=== PATIENT | female | born 1975 | race Caucasian/White ===

== ENCOUNTER → 2016-09-04 | Outpatient (CLI) | payer BC ==
[~2016-09-04] MED LIST: ACHD5005 PO; ACYC2CRE TP; ALPR.5T PO; AMIT10TA6 PO; AMOX-355 PO; AMOX-358 PO; ARIP10TA2 PO; AZTH250C PO; BUDE6HFA IH; BUPR150T6 PO; CPR500T PO; CYCL10TA9 PO; DCS100C; DULO60CA6 PO; ESTR1TAB24 PO; FLC150T PO; FLUO20CA25 PO; FLUR30CA13 PO; FRSM40T PO; HYDR-2890 PO; HYDR-3454 PO; HYDR-3816 PO; HYDR-757 PO; KETO10TA PO; LACT1CAP62 PO; LVB125NB3; MELA5CAP PO; METO-270 PO; METR500T PO; MILN50TA PO; MUPI1OIN5 NS; NAPR-243 PO; NEBI5TAB8 PO; PHEN-483 PO; PHEN15CA67 PO; POTA10CA43 PO; PRD5T PO; SULF1TAB35 PO; TEMA30CA6 PO; TOPI50TA37 PO; TPR25T PO; TRAM50TA2 PO; TRM50T PO; VALA100033 PO; ZLP10T PO
--- OUTSIDE RECORDS SUMMARY | 2016-09-04 15:53 | XMS REPORT | Continuity of Care Document ---
Author Author [facility] Organization [facility] Address Unknown Phone Unavailable Care Team Providers Care Heating Mechanic Name Role Phone RAMAN CASTELLANOS MD PCP Insurance Providers Payer Name Policy Number Subscriber Name Relationship [facility] [id number] Norris Daniels Ii 01 Advance Directives Directive Response Recorded Date/Time Advance Directives No 12/27/15 8:24pm Health Care Power of Airline Captain No 12/27/15 8:24pm Organ Donor Yes 12/27/15 8:24pm Resuscitation Status Full Code 12/27/15 8:24pm Chief Complaint and Reason for Visit Chief Complaint Laceration Reason for Visit Laceration of foot Problems Active Problems Medical Problem Onset Date Status Laceration of foot Unknown Acute Medications Current Home Medications Medication Dose Units Route Directions Days/Qty Instructions Start Date Estradiol 1 Mg 1 Mg Oral Daily 05/25/11 Alprazolam 0.5 Mg 1 Tab Oral Daily as needed 07/31/11 Metoprolol Succinate 25 Mg 25 Mg Oral Twice A Day 04/03/15 Duloxetine Hcl 60 Mg 60 Mg Oral Daily 04/03/15 Topiramate 50 Mg 50 Mg Oral Daily 04/03/15 Tramadol Hcl 50 Mg 50 Mg Oral As Needed 04/03/15 Phentermine Hcl 37.5 Mg 37.5 Mg Oral Daily 04/03/15 Hydrocodone/Acetaminophen 1 Each 1 Each Oral As Needed 04/03/15 Hydrocodone/Acetaminophen 1 Each 1 Each Oral Every 4HRS as needed for Pain 40 04/05/15 Amoxicillin/Potassium Clav 1 Each 1 Tab Oral Twice A Day 7 Days Hydrocodone/Acetaminophen 1 Each 1 Each Oral Every 4HRS as needed for Pain 14 12/27/15 Sulfamethoxazole/Trimethoprim 1 Each 1 Each Oral Twice A Day 14 Metronidazole 500 Mg 500 Mg Oral Three Times A Day 21 12/27/15 Lactobacillus Acidophilus 1 Each 1 Each Oral Twice A Day 12/27/15 Past Home Medications Medication Directions Ordered Status Alprazolam 0.5 Mg Tablet, 1 Tab Oral Every 6 Hours as needed 04/15/10 Discontinued Hydrocodone Bit/Acetaminophen 1 Each Tablet, 1 Each Oral Every 6 Hours as needed 10/08/10 Discontinued Flurazepam Hcl 30 Mg Capsule, 30 Mg Oral Bedtime as needed 10/08/10 Discontinued Nebivolol Hcl 5 Mg Tablet, 1 Each Oral Daily 10/08/10 Discontinued Fluoxetine Hcl (Prozac) 20 Mg Capsule, 1 Each Oral Daily 10/08/10 Discontinued Aripiprazole 10 Mg Tablet, 10 Mg Oral Daily 10/08/10 Discontinued Melatonin 5 Mg Capsule, 5 Mg Oral Daily 10/08/10 Discontinued Ciprofloxacin 500 Mg Tablet, 1 Tab Oral Twice A Day 10/31/10 Discontinued Zolpidem Tartrate 10 Mg Tab, 10 Mg Oral Bedtime 05/25/11 Discontinued Bupropion Hcl 150 Mg Tab.sr.24h, 1 Tab Oral Daily 05/25/11 Discontinued Zolpidem Tartrate 10 Mg Tab, 10 Mg Oral Bedtime 07/31/11 Discontinued Acetaminophen/Hydrocodone Bitart 1 Each Tablet, 1 Each Oral Every 6 Hours as needed 07/31/11 Discontinued Tramadol Hcl 50 Mg Tablet, 50 Mg Oral Every 6 Hours as needed 07/31/11 Discontinued Valacyclovir Hcl 1,000 Mg Tablet, 1000 Mg Oral Three Times A Day as needed Discontinued Acyclovir 2 Gm Cream.gm., 0 Topical Four Times Daily as needed 07/31/11 Discontinued Phentermine Hcl 15 Mg Capsule, 15 Mg Oral Daily 07/31/11 Discontinued Budesonide/Formoterol Fumarate 10.2 Gm Hfa.aer.ad, 2 Puff Inhalation Twice A Day 07/31/11 Discontinued Prednisone 5 Mg Tab, 5 Mg Oral Daily 08/04/11 Discontinued Hydrocodone Bit/Acetaminophen 1 Each Tablet, 1 Each Oral Every 4HRS as needed 08/04/11 Discontinued Fluconazole 150 Mg Tablet, 1 Each Oral Daily 08/04/11 Discontinued Furosemide 40 Mg Tab, 40 Mg Oral Daily 08/04/11 Discontinued Potassium Chloride 10 Meq Capsule.sa, 10 Meq Oral Daily 08/04/11 Discontinued Naproxen 500 Mg Tablet, 1 Each Oral Twice A Day as needed 08/06/11 Discontinued Levalbuterol Hcl 1.25 Mg/3 Ml Nebu, Four Times Daily 08/13/11 Discontinued Docusate Sodium 100 Mg Capsule, Daily 08/13/11 Discontinued Azithromycin 250 Mg Tablet, 1 Tab Oral Daily 08/13/11 Discontinued Topiramate 25 Mg Tab, 25 Mg Oral Twice A Day 06/07/12 Discontinued Amitriptyline Hcl (Elavil) 10 Mg Tablet, 4 Each Oral Bedtime 06/07/12 Discontinued Acetaminophen/Hydrocodone Bitart 1 Each Tablet, 1 - 2 Each Oral Every 6 Hours as needed 06/07/12 Discontinued Amoxicillin/Potassium Clav 1 Each Tablet, 1 Each Oral Twice A Day 12/27/15 Discontinued Social History Social History Problem Response Recorded Date/Time Alcohol Use Occasionally Uses 12/27/2015 8:24pm Recreational Drug Use No 12/27/2015 8:24pm Recent Foreign Travel No 12/27/2015 8:24pm Recent Infectious Disease Exposure No 12/27/2015 8:24pm Hospitalization with Isolation Denies 12/27/2015 8:24pm Sexually Transmitted Disease No 12/27/2015 8:24pm HIV/AIDS No 12/27/2015 8:24pm Smoking Status Never a Smoker 12/27/2015 8:24pm Do you dip or chew tobacco? No 12/27/2015 8:24pm Query Response Start Date Stop Date Smoking Status Never a Smoker Hospital Discharge Instructions No hospital discharge instructions. Plan of Care Discharge Date 12/27/15 9:30pm Disposition 01 HOME, SELF-CARE Condition at Discharge Improved Instructions/Education Provided Suture Care (ED) Laceration (ED) Prescriptions See Medication Section Referrals RAMAN CASTELLANOS MD - Primary Care Physician Additional Instructions/Education 1. Follow up with Dr. Castellanos for recheck of the wound on Thursday or Thursday. If you are unable to be seen by him on either of those days you may return to the emergency room for wound recheck on either of those days. He should return promptly to the emergency room for any sign of infection such as redness, fevers, increased swelling or pain. Keep this clean and covered and dry for 2 days. After that you may wash it gently with soap and water allowing water to run over it. However, do not soak it in water such as a [place], [place], swimming pool, hot tub, bath tub. Change the dressing daily. Oral antibiotics as directed. All discharge instructions reviewed with patient and/or family. Voiced understanding. Functional Status No functional status results. Allergies, Adverse Reactions, Alerts No known allergies. Immunizations Name Given Type Tdap 12/27/15 Administered Vital Signs Acute Vital Signs Vital Response Date/Time Temperature (Fahrenheit) 98.2 degrees F (97.6 - 99.5) 12/27/2015 8:24pm Temperature (Calculated Celsius) 36.24692 degrees C (36.4 - 37.5) 12/27/2015 8:24pm Pulse Rate (adult) 94 bpm (60 - 90) 12/27/2015 8:24pm Respiratory Rate 16 bpm (12 - 24) 12/27/2015 8:24pm O2 Sat by Pulse Oximetry 96 % (88 - 100) 12/27/2015 8:24pm Blood Pressure 150/100 mm Hg 12/27/2015 8:24pm Blood Pressure Mean 117 mm Hg 12/27/2015 8:24pm Pain Numeric Pain Scale 10-Worst Possible Pain 12/27/2015 8:29pm Height (Feet) 5 feet 12/27/2015 8:24pm Height (Inches) 8 inches 12/27/2015 8:24pm Height (Calculated Centimeters) 172.054794 cm 12/27/2015 8:24pm Weight (Pounds) 156 pounds 12/27/2015 8:24pm Weight (Calculated Kilograms) 70.720347 kilograms 12/27/2015 8:24pm Height 5 ft 8 in Weight 156 lb Body Mass Index 23.7 kg/m^2 Results No known relevant diagnostic tests, laboratory data and/or discharge summary. Procedures No known history of procedures. Encounters Encounter Location Arrival/Admit Date Discharge/Depart Date Attending Provider Departed Emergency Room [facility] 12/27/15 8:16pm 12/26 9:30pm JOSE KEATING APRN Recent Diagnosis
--- NOTE | 2016-09-08 17:27 | Diagnostic Imaging Report ---
Bilateral screening mammogram The current study was also evaluated with a Computer Aided Detection (CAD) system. INDICATION: Screening. No current complaints stated on the questionnaire. COMPARISON: 09/30/2013. FINDINGS: The breasts are composed of scattered fibroglandular densities. There are no masses, architectural distortion, or suspicious cluster of calcifications. Occasional punctate calcifications are seen. Allowing for technique and positional differences, no suspicious change is seen. IMPRESSION: No significant change. ACR BI-RADS Category 2: Benign findings. Result letter will be mailed to the patient. Note: At least 10% of breast cancer is not imaged by mammography. Dictated by: Dictated on workstation # [id number]
== END ==
LOC: RAD 15:49
PROVIDERS: ATTEND Nurse Practitioner Family
DX: Z12.31 Encounter for screening mammogram for malignant neoplasm of breast (principal)
CPT/HCPCS: 77067

== ENCOUNTER → 2018-03-25 | Outpatient (CLI) | payer BC ==
[~2018-03-25] MED LIST changes: +HYDR-34 PO; -HYDR-3816 PO; +HYDR-4226 PO; -HYDR-757 PO; -METO-270 PO; +METO-387 PO
--- NOTE | 2018-03-26 20:04 | Diagnostic Imaging Report ---
The current study was also evaluated with a Computer Aided Detection (CAD) system. 3-D tomosynthesis was also performed and reviewed. Digital mammogram bilateral screening This study was compared to the prior exam of 09/04/2016. At this time, there are no current complaints. The current study was also evaluated with a Computer Aided Detection (CAD) system. FINDINGS: There are scattered fibroglandular densities in both breasts which could obscure a lesion. Overall, there does not appear to have been any significant change when compared to the prior exam. No primary or secondary sign of malignancy is noted. IMPRESSION: There is no radiographic evidence for malignancy. ACR BI-RADS Category 1: Negative. Result letter will be mailed to the patient. Note: At least 10% of breast cancer is not imaged by mammography. Dictated by: Dictated on workstation # [id number]
== END ==
LOC: RAD 15:10
DX: Z12.31 Encounter for screening mammogram for malignant neoplasm of breast (principal)
CPT/HCPCS: 77067

== ENCOUNTER 2019-02-10 16:29 | Outpatient (RCR) | payer BC ==
[~2019-02-10 16:29] MED LIST changes: -HYDR-3454 PO; +HYDR-3455 PO
== END 2019-03-02 08:50 | disposition home or self-care (01) ==
PROVIDERS: ATTEND Nurse Practitioner Family
DX: M54.5 Low back pain (principal)

== ENCOUNTER → 2019-04-19 | Outpatient (CLI) | payer BC ==
--- NOTE | 2019-04-19 13:46 | Diagnostic Imaging Report ---
PROCEDURE: MRI lumbar spine. TECHNIQUE: Multiplanar/multisequence MRI of the lumbar spine was performed without contrast. INDICATION: Low back pain. COMPARISON: Correlation is made with the prior MRI of the lumbar spine performed on 02/11/2016. FINDINGS: The curvature and alignment of the lumbar spine remain within normal limits. The vertebral body heights and marrow signal intensity are unremarkable. No geographic marrow lesion or acute compression fracture is seen. There continues to be some mild loss of height and signal intensity to the L2-3 disc, compatible with mild degenerative disc disease. The remaining discs show fairly normal height and signal intensity. The conus is unremarkable at the L1 level. T12-L1: No central canal or neuroforaminal stenosis is identified. L1-L2: No central canal or neuroforaminal stenosis is identified. L2-L3: Broad-based disc bulging in the midline is noted, slightly more prominent than on the prior exam, which shows some slight indentation of the ventral thecal sac. Even so, no significant central canal narrowing is seen. The neuroforamina are widely patent. L3-L4: The central canal and neuroforamina are widely patent. L4-L5: There are some ligamentous changes and facet arthropathy but the central canal and neuroforamina are widely patent. L5-S1: The central canal and neuroforamina are widely patent. The paraspinous tissues are unremarkable. IMPRESSION: The L2-L3 wide based midline disc bulge is slightly more prominent when compared with the prior MRI from January 2016. Even so, no significant central canal or neuroforaminal narrowing is seen. All other levels are stable. No acute compression fracture is identified. Dictated by: Dictated on workstation # [id number]
== END ==
LOC: RAD 12:27
PROVIDERS: ATTEND Nurse Practitioner Family
DX: M51.26 Other intervertebral disc displacement, lumbar region (principal)
CPT/HCPCS: 72148

== ENCOUNTER 2019-09-14 16:28 | Emergency (ER) | payer BC ==
[~2019-09-14] VITALS: Ht 172.8 cm; Wt 74.0 kg
[~2019-09-14 16:28] MED LIST changes: -METO-387 PO; +MTP25TSR PO
[2019-09-14] MEDS ORDERED: HYDROcodone/APAP 10 MG/325 MG (LORTAB) TAB PO STA (17:10)
--- NOTE | 2019-09-14 17:12 | ED Upper Extremity ---
General Chief Complaint: Upper Extremity Stated Complaint: FALL - R HAND INJ Nursing Triage Note: Pt amb to triage with c/o Rt hand injury. Pt reports @ 1600 on this day, while walking down a set of stairs, her leg "gave out" resulting in falling down last two stairs. Pt denies hitting head, LOC, or further injury. 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 Pt reports hx rheumatoid arthritis. A&OX4. Nursing Sepsis Screen: No Definite Risk Source: patient Exam Limitations: no limitations History of Present Illness Date Seen by Provider: Sep 14, 2019 Time Seen by Provider: 17:05 Initial Comments Here with report of right hand pain and injury. She has rheumatoid arthritis and her hip gave out when she went down the stairs. She tried a touch herself with her hand and jammed her right fifth finger stating that it bent backwards. She states the other fingers but forward in the flexed position. She has deformity in the third, fourth and fifth MCP and significant swelling to the right fifth finger from the MCP to the tip. Abrasion over the third MCP. Tetanus is up-to-date. Denies hitting her head. Denies other significant injury. Planes of mild pain to the anterior right knee but is able to walk on it and is not concerned about that at this point. She does have hydrocodone 10/325 at home that she takes as needed for her rheumatoid arthritis. She has only had a Tylenol 500 today for this at 4 PM. Patient is right-hand dominant Onset: just prior to arrival (1-2 hours ago) Severity: moderate Pain/Injury Location: right hand Method of Injury: fell Modifying Factors: Improves With Immobilization; Worse With Movement; Improves With Rest Allergies and Home Medications Allergies Coded Allergies: No Known Drug Allergies (Unverified , 04/15/10) Home Medications Alprazolam 0.5 Mg Tablet, 1 TAB PO DAILY PRN, (Reported) Amoxicillin/Potassium Clav 1 Each Tablet, 1 TAB PO BID Prescribed by: CAMILO PIZARRO on 04/05/15 1026 Cyclobenzaprine HCl 10 Mg Tablet, 10 MG PO Q8H Prescribed by: QUAN FAUST on 03/17/16 1410 Duloxetine HCl 60 Mg Capsule.dr, 60 MG PO DAILY, (Reported) Estradiol 1 Mg Tablet, 1 MG PO DAILY, (Reported) Hydrocodone Bit/Acetaminophen 1 Each Tablet, 1 EACH PO PRN, (Reported) Hydrocodone/Acetaminophen 1 Each Tablet, 1 EACH PO Q4H PRN for PAIN Prescribed by: CAMILO PIZARRO on 04/05/15 1026 Hydrocodone/Acetaminophen 1 Each Tablet, 1 EACH PO Q4H PRN for PAIN Prescribed by: JOSE KEATING on 12/27/152054 Ketorolac Tromethamine 10 Mg Tablet, 10 MG PO Q6H Prescribed by: QUAN FAUST on 03/17/16 1410 Lactobacillus Acidophilus 1 Each Capsule, 1 EACH PO BID Prescribed by: JOSE KEATING on 12/27/152100 Metoprolol Succinate 25 Mg Tab.er.24h, 25 MG PO BID, (Reported) Metronidazole 500 Mg Tablet, 500 MG PO TID Prescribed by: JOSE KEATING on 12/27/152100 Phentermine HCl 37.5 Mg Capsule, 37.5 MG PO DAILY, (Reported) Sulfamethoxazole/Trimethoprim 1 Each Tablet, 1 EACH PO BID Prescribed by: JOSE KEATING on 12/27/152100 Topiramate 50 Mg Tablet, 50 MG PO DAILY, (Reported) Tramadol HCl 50 Mg Tablet, 50 MG PO PRN, (Reported) Patient Home Medication List Home Medication List Reviewed: Yes Review of Systems Constitutional: see HPI; No chills, No fever Respiratory: no symptoms reported Cardiovascular: no symptoms reported Musculoskeletal: joint pain, joint swelling; No muscle weakness Skin: change in color, lesions Psychiatric/Neurological: Denies Numbness, Denies Tingling Past Eiqweic-Nkvdse-Biznim Hx Past Med/Social Hx: Reviewed Nursing Past Med/Soc Hx Patient Social History Alcohol Use: Denies Use Recreational Drug Use: No Smoking Status: Never a Smoker 2nd Hand Smoke Exposure: No Recent Foreign Travel: No Contact w/Someone Who Travel: No Recent Infectious Disease Expo: No Recent Hopitalizations: No Immunizations Up To Date Tetanus Booster (TDap): Less than 5yrs Past Medical History Surgeries: Yes (RIGHT KNEE SCOPE; HYST/BSO) Appendectomy, Section, Hysterectomy, Oophorectomy, Orthopedic, Tonsillectomy Respiratory: No Cardiac: Yes Hypertension Neurological: Yes Headaches /Migraines Reproductive Disorders: No Female Reproductive Disorders: Denies 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 Sexually Transmitted Disease: No HIV/AIDS: No Gastrointestinal: Yes Polyps Musculoskeletal: Yes (CHRONIC NECK AND BACK PAIN; SCIATICA; "BULGING DISCS" PER PT) Chronic Back Pain Endocrine: No Loss of Vision: Denies Hearing Impairment: Denies Cancer: No Psychosocial: Yes Anxiety Integumentary: No Blood Disorders: No Adverse Reaction/Blood Tranf: No Family Medical History Reviewed Nursing Family Hx Physical Exam Vital Signs Vital Signs - First Documented 09/14/19 16:45 Pulse 74 Resp 18 B/P (MAP) 119/79 (92) Pulse Ox 97 O2 Delivery Room Air Capillary Refill : Less Than 3 Seconds Height, Weight, BMI Height: 5'8" Weight: 157lbs. 0oz. 71.980084dd; 24.00 BMI Method:Stated General Appearance: WD/WN, no apparent distress Cardiovascular: regular rate, rhythm, no murmur Respiratory: lungs clear, normal breath sounds Hand: Right, deformity, ecchymosis, limited ROM, soft tissue tenderness, stiffness, swelling (right hand with swelling noted especially of the fifth digit. Deformity, swelling and pain at the MCP of the third, fourth and fifth with some swelling and ecchymosis noted to the distal hand and fifth finger.) Neurologic/Psychiatric: alert, oriented x 3; No sensory deficit Skin: normal color, warm/dry, other (small abrasion to the right third MCP dorsum) Procedures/Interventions Suture Size: 5-0 Progress/Results/Core Measures Results/Orders My Orders Orders - EFREN CRUZ MD Hydrocodone/Apap 10/325 Tablet (Lortab 1 (09/14/19 17:10) Hand, Right, 3 Views (09/14/19 17:10) Vital Signs/I&O 09/14/19 16:45 Pulse 74 Resp 18 B/P (MAP) 119/79 (92) Pulse Ox 97 O2 Delivery Room Air Blood Pressure Mean: 92 Progress Progress Note : Progress Note Seen and evaluated. Hydrocodone 10/325 one tab by mouth given. X-ray right hand and ice pack ordered. Monitor patient. Left fifth proximal phalanx fracture noted that does appear to be closed interarticular area. Ulnar gutter splint placed by me. Good distal circulation and sensation noted afterwards. Patient has history with Dr. Lucas so we'll call him in the morning. Discharged home with return precautions. Patient and family verbalize understanding instructions and agreement with plan. Diagnostic Imaging Diagonstic Imaging: Xray Plain Films/CT/US/NM/MRI: other Comments Right proximal fifth phalanx fracture at the MCP. Departure Impression Primary Impression: Finger fracture, right Qualified Codes: S62.646A - Nondisplaced fracture of proximal phalanx of right little finger, initial encounter for closed fracture Disposition: HOME, SELF-CARE Condition: Stable Departure-Patient Inst. Decision time for Depature: 17:55 Referrals: RAMAN CASTELLANOS MD (PCP/Family) Primary Care Physician ISABELA OLMSTEAD MD, MICHAEL P MD Patient Instructions: Finger Fracture Add. Discharge Instructions: All discharge instructions reviewed with patient and/or family. Voiced understanding. Keep splint clean and dry. Continue your home pain medications as previously prescribed. Call Dr. Lucas's office in the morning for appointment. If you're unable to get in with him then you may use the other orthopedist as listed above. Return for worse pain, swelling, numbness or other concerns as needed. Keep hand elevated as much as possible to reduce swelling. Use ice packs over area concern 20 minutes per hour over the next 2 days to reduce swelling as well. EFREN CRUZ MD Sep 14, 2019 17:12
[2019-09-14 18:00] VITALS: BP 119/79
--- NOTE | 2019-09-14 18:08 | Diagnostic Imaging Report ---
EXAMINATION: Right hand radiographs, 3 views. COMPARISON: None. HISTORY: 43-year-old female, right hand injury. FINDINGS: There is a comminuted mildly displaced intra-articular fracture involving the fifth proximal phalanx with intra-articular fracture extension at the level of the fifth metacarpal phalangeal joint. There is no gross offset of the articulating surface. There is no identified radiopaque foreign body. IMPRESSION: Comminuted mildly displaced intra-articular fracture of the fifth proximal phalanx without identified offset of the articulating surface. Dictated by: Dictated on workstation # [id number]
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
== END 2019-09-14 18:00 | disposition home or self-care (01) ==
LOC: EDUNIT# 16:28 → ER 16:30
DX: S62.646A Nondisplaced fracture of proximal phalanx of right little finger, initial encounter for closed fracture (principal); I10 Essential (primary) hypertension; F41.9 Anxiety disorder, unspecified; Z79.52 Long term (current) use of systemic steroids; W10.9XXA Fall (on) (from) unspecified stairs and steps, initial encounter
CPT/HCPCS: 29125; 73130

== ENCOUNTER → 2020-03-26 | Outpatient (CLI) | payer OTHER, BC ==
--- NOTE | 2020-03-26 18:28 | Diagnostic Imaging Report ---
Exam: CT right fifth finger without contrast. Date: March 26, 2020. Indication: 44-year-old female, evaluate right fifth finger following surgery. Comparison: Right hand radiographs September 14, 2019. Technique: Axial CT images of the right fifth finger were obtained without contrast. Coronal and sagittal reformats were obtained and provided. All CT scans use one or more of the following dose optimizing techniques: automated exposure control, MA and/or KvP adjustment based on a patient size and exam type, or iterative reconstruction. Findings: There is a fixation screw at the level of the proximal aspect of the fifth proximal phalanx. There is interval bony callus bridging at the site of prior fifth proximal phalangeal fracture. There is a persistent visible fracture line at the most ulnar aspect of the fracture on coronal image 16 and adjacent sequential images. This includes fracture extension to the articulating surface. The fracture is otherwise completely bridged with a mild residual deformity. There is no gross offset of the articulating surface of the base of the fifth proximal phalanx. There is no cortical or aggressive bone destruction. There is no concerning periosteal reaction. Impression: 1. Near complete bony bridging of the prior intra-articular fracture of the fifth proximal phalanx with residual fracture line at the most ulnar aspect of the prior fracture including intraarticular fracture extension. There is no gross offset of the articulating surface. The fracture is otherwise completely bridged with mild residual deformity. Dictated by: Dictated on workstation # [id number]
== END ==
LOC: RAD 15:45
PROVIDERS: ATTEND Orthopaedic Surgery Hand Surgery
DX: S62.616D Displaced fracture of proximal phalanx of right little finger, subsequent encounter for fracture with routine healing (principal); Z98.890 Other specified postprocedural states
CPT/HCPCS: 73200

== ENCOUNTER 2020-05-08 01:42 | Emergency (ER) | payer BC, OTHER ==
[~2020-05-08] VITALS: Ht 172.7 cm; Wt 73.0 kg
[2020-05-08] MEDS ORDERED: TETANUS,DIPTH,PERTUSS P/F (BOOSTRIX) 0.5 ML VIAL IM ONE (02:15)
--- NOTE | 2020-05-08 02:19 | ED Fall/Injury ---
General Chief Complaint: Trauma-Non Activation Stated Complaint: FALL,LEFT HAND & NOSE PAIN Nursing Triage Note: Pt states she was sleep-walking and fell forward, c/o pain in left wrist and on bridge of nose (lac present) Source: patient Exam Limitations: no limitations (KELLY TRAORE STUDENT) History of Present Illness Date Seen by Provider: May 08, 2020 Time Seen by Provider: 01:48 Initial Comments Ms. Daniels is a 44 y/o F who presents to ED via driving her with chief complaint of fall. She said she was sleep walking and woke up as she was falling forward. She reports hitting her face and left hand on her fall. She said the fall was loud enough to wake her up. She reports taking 10 of ambien for the last couple years and took this last night before going to bed. She said it happened approximately at 1am. She rates the pain as 4/10 right now. She wonders if her nose is broken. She describes her hand pain as worse in the 4th and 5th digits. She reports that she had surgery 3 weeks ago on her right 5th digit due to a fall back in August of this year at work. She denies any neck pain, COOLEY, head pain, blurry vision, confusion, memory loss, syncope, nausea, vomiting, abdominal pain, chest pain or difficulty breathing. Location Injury Occurred: home (KELLY TRAORE STUDENT) Allergies and Home Medications Allergies Coded Allergies: No Known Drug Allergies (Unverified , 04/15/10) Home Medications Alprazolam 0.5 Mg Tablet, 1 TAB PO DAILY PRN, (Reported) Amoxicillin/Potassium Clav 1 Each Tablet, 1 TAB PO BID Prescribed by: CAMILO PIZARRO on 04/05/15 1026 Cyclobenzaprine HCl 10 Mg Tablet, 10 MG PO Q8H Prescribed by: QUAN FAUST on 03/17/16 1410 Duloxetine HCl 60 Mg Capsule.dr, 60 MG PO DAILY, (Reported) Estradiol 1 Mg Tablet, 1 MG PO DAILY, (Reported) Hydrocodone Bit/Acetaminophen 1 Each Tablet, 1 EACH PO PRN, (Reported) Hydrocodone/Acetaminophen 1 Each Tablet, 1 EACH PO Q4H PRN for PAIN Prescribed by: CAMILO PIZARRO on 04/05/15 1026 Hydrocodone/Acetaminophen 1 Each Tablet, 1 EACH PO Q4H PRN for PAIN Prescribed by: JOSE KEATING on 12/27/152054 Ketorolac Tromethamine 10 Mg Tablet, 10 MG PO Q6H Prescribed by: QUAN FAUST on 03/17/16 1410 Lactobacillus Acidophilus 1 Each Capsule, 1 EACH PO BID Prescribed by: JOSE KEATING on 12/27/152100 Metoprolol Succinate 25 Mg Tab.er.24h, 25 MG PO BID, (Reported) Metronidazole 500 Mg Tablet, 500 MG PO TID Prescribed by: JOSE KEATING on 12/27/152100 Phentermine HCl 37.5 Mg Capsule, 37.5 MG PO DAILY, (Reported) Sulfamethoxazole/Trimethoprim 1 Each Tablet, 1 EACH PO BID Prescribed by: JOSE KEATING on 12/27/152100 Topiramate 50 Mg Tablet, 50 MG PO DAILY, (Reported) Tramadol HCl 50 Mg Tablet, 50 MG PO PRN, (Reported) Patient Home Medication List Home Medication List Reviewed: Yes (KELLY TRAORE [employer] STUDENT) Review of Systems Review of Systems Constitutional: No dizziness, No fever, No weakness Eyes: Denies Blurred Vision, Denies Pain Ears, Nose, Mouth, Throat: denies ear pain; nose pain; denies epistaxis, denies mouth pain, denies loose teeth, denies throat pain Respiratory: No cough, No short of breath Cardiovascular: No chest pain Gastrointestinal: No abdominal pain, No nausea, No vomiting Genitourinary: no symptoms reported Musculoskeletal: No back pain, No neck pain; other (Left hand pain and right hip pain) Skin: no symptoms reported Psychiatric/Neurological: Denies Headache, Denies Numbness (KELLY TRAORE [employer] STUDENT) Past Hnqxudq-Dfmvfq-Vocnwy Hx Patient Social History Alcohol Use: Denies Use Recreational Drug Use: No 2nd Hand Smoke Exposure: No Recent Foreign Travel: No Contact w/Someone Who Travel: No Recent Infectious Disease Expo: No Recent Hopitalizations: No (KELLY TRAORE [employer] STUDENT) Immunizations Up To Date Tetanus Booster (TDap): Less than 5yrs (KELLY TRAORE [employer] STUDENT) Past Medical History Surgeries: Yes (RIGHT KNEE SCOPE; HYST/BSO) Appendectomy, Section, Hysterectomy, Oophorectomy, Orthopedic, Tonsillectomy Respiratory: No Cardiac: Yes Hypertension Neurological: Yes Headaches /Migraines : No Reproductive Disorders: No Female Reproductive Disorders: Denies ASSEMBLER BODY History: Hysterectomy Sexually Transmitted Disease: No HIV/AIDS: No Gastrointestinal: Yes Polyps Musculoskeletal: Yes (CHRONIC NECK AND BACK PAIN; SCIATICA; "BULGING DISCS" PER PT) Chronic Back Pain Endocrine: No Loss of Vision: Denies Hearing Impairment: Denies Cancer: No Psychosocial: Yes Anxiety Integumentary: No Blood Disorders: No Adverse Reaction/Blood Tranf: No (KELLY TRAORE MED STUDENT) Physical Exam Vital Signs Vital Signs - First Documented 05/08/20 01:56 Temp 35.8 Pulse 75 Resp 16 B/P (MAP) 111/85 (94) Pulse Ox 98 O2 Delivery Room Air (PUJA BARRIOS MD) Vital Signs Capillary Refill : Less Than 3 Seconds (KELLY TRAORE MED STUDENT) Height, Weight, BMI Height: 5'8" Weight: 157lbs. 0oz. 71.387194xl; 24.00 BMI Method:Stated General Appearance: WD/WN, no apparent distress HEENT: PERRL/EOMI, normal ENT inspection, TMs normal, pharynx normal, other (5mm laceration on nose that has well-approximated edges. No gross deformity of nose. Erythema on left cheek.) Neck: non-tender, full range of motion, normal inspection Cardiovascular: regular rate, rhythm, no murmur Respiratory: chest non-tender, lungs clear, normal breath sounds, no respiratory distress, no accessory muscle use Peripheral Pulses: 2+ Radial Pulses (R), 2+ Radial Pulses (L) Gastrointestinal: normal bowel sounds, non tender, soft, no organomegaly, no pulsatile mass Extremities: normal range of motion, other (TTP at 4th and 5th left fingers. normal range of motion but pain with flexion or extension of left fingers. No TTP at left wrist, forearm or elbow. Minimal TTP along right proximal lateral femur. Normal strength and ROM of right hip.) Neurologic/Psychiatric: alert, normal mood/affect, oriented x 3 Skin: normal color, warm/dry (KELLY TRAORE MED STUDENT) Procedures/Interventions Suture Size: 5-0 (KELLY TRAORE MED STUDENT) Progress/Results/Core Measures Results/Orders My Orders Orders - PUJA BARRIOS MD Hand, Left, 3 Views (05/08/20 02:13) Dipht,Pertuss(Acell),Tet Adult (Boostrix (05/08/20 02:15) (PUJA BARRIOS MD) Medications Given in ED Current Medications Medications Dose Ordered Sig/Willian Route Start Time Stop Time Status Last Admin Dose Admin Diphtheria/ Tetanus/Acell Pertussis 0.5 ml ONCE ONCE IM 05/08/20 02:15 05/08/20 02:16 DC 05/08/20 02:37 0.5 ML (PUJA BARRIOS MD) Vital Signs/I&O 05/08/20 05/08/20 01:56 02:37 Temp 35.8 35.8 Pulse 75 75 Resp 16 16 B/P (MAP) 111/85 (94) 111/85 (94) Pulse Ox 98 98 O2 Delivery Room Air Room Air (PUJA BARRIOS MD) Blood Pressure Mean: 94 Progress Progress Note : Progress Note Ms. Daniels is a 44 y/o F who presents with injuries secondary to a fall. She appears to have hit her nose, face and left hand with this fall. She denies symptoms of a head injury and thus we will not get head imaging at this time. She also says hip pain is 1/10 and exam shows minimal tenderness along lateral hip with no signs of weakness or deficits in ROM. We will order xray of left hand. Xray of left hand concerning for proximal 5th metacarpal fracture. Patient placed in removeable splint and advised to follow up with orthopedic and family practice this week. (KELLY TRAORE MED STUDENT) Diagnostic Imaging Diagonstic Imaging: Xray Plain Films/CT/US/NM/MRI: hand Comments Left hand x-ray viewed by me. Report not yet available. There is a lucency on the lateral edge of the proximal fifth metacarpal suspicious for fracture. (PUJA BARRIOS MD) Departure Impression Primary Impression: Fall on same level Qualified Codes: W18.30XA - Fall on same level, unspecified, initial encounter Additional Impressions: Injury of left hand Qualified Codes: S69.92XA - Unspecified injury of left wrist, hand and finger(s), initial encounter Contusion of face Qualified Codes: S00.83XA - Contusion of other part of head, initial encounter Facial laceration Qualified Codes: S01.81XA - Laceration without foreign body of other part of head, initial encounter Disposition: 01 HOME, SELF-CARE Condition: Improved Departure-Patient Inst. Decision time for Depature: 02:47 (PUJA BARRIOS MD) Referrals: RAMAN CASTELLANOS MD (PCP/Family) Primary Care Physician ISABELA OLMSTEAD MD, MICHAEL P MD Patient Instructions: Hand Fracture Add. Discharge Instructions: Follow-up with Dr. Castellanos as soon as possible to discuss alternatives to Ambien as it may be responsible for your fall and can cause dangerous sleep activities in some people. There is a questionable fracture of your fifth metacarpal. Please call the ER after 10:00 tomorrow morning to obtain the official reading. If fracture is determined by the radiologist, follow-up with the orthopedic provider of your choice. If no fracture is seen, consider follow-up with Dr. Castellanos or orthopedic provider of your choice to determine if a repeat x-ray is appropriate. For pain use icing in 20-minute intervals, elevation, splinting, and Tylenol (acetaminophen) up to 1000 mg every 6 hours. Keep your splint on as much as possible. Return to the emergency room with any further urgent issues or concerns. All discharge instructions reviewed with patient and/or family. Voiced understanding. Medical Student Attestation and Attending Note I have personally interviewed and examined this patient along with the Kelly Traore, OLIVIA. I have reviewed his documentation including history, physical, and assessments and agree except where otherwise noted. This patient presents with contusion to the left face, small laceration on the bridge of the nose, and injury to the left hand. She denies any secondary symptoms of concussion. The laceration on the nose was small and did not require any repair. She was given a tetanus booster. Based on exam and history, CT of the head was not felt necessary. Patient denied any neck pain. Evaluation of the left hand revealed tenderness over the fourth and fifth metacarpals. X-ray was obtained which revealed a subtle lucency on the lateral edge of the proximal fifth metacarpal. This was concerning for a possible fracture. Patient was placed in a Colles' splint and advised to follow-up with her PCP or a primary care provider of her choice for further evaluation later in the week. She was also advised to call the ER after 10:00 in the morning to obtain the official reading. I also advised that she discuss Ambien with Dr. Castellanos suggesting that she either change sleep aids or reduce the dose given the risk of dangerous sleep activities. Exam: General: Alert, oriented, no acute distress HEENT: Erythema and slight swelling to the left cheek. Tiny laceration of the bridge of the nose. Heart: Regular rate and rhythm without murmur Lungs: Clear to auscultation bilaterally with normal effort Extremities: Ulnar aspect of the left hand tender and swollen around the fourth and fifth metacarpal. Tenderness worse on the proximal end. Wrist exam normal. Neuropsych: Alert, oriented, no focal deficits (PUJA BARRIOS MD) Copy Copies To 1: RAMAN CASTELLANOS MD, VAN A MED STUDENT May 08, 2020 02:19 PUJA BARRIOS MD May 08, 2020 02:50
[2020-05-08 02:59] VITALS: BP 130/94
--- NOTE | 2020-05-08 06:20 | Diagnostic Imaging Report ---
Left hand at 230 hours. INDICATION: Hand pain. 3 views were obtained. There are no prior studies available for comparison. FINDINGS: There is a nondisplaced fracture extending through the medial cortex of the base of the 5th metacarpal. No other fracture or acute bony abnormality is appreciated. The soft tissues are unremarkable. IMPRESSION: There is a nondisplaced fracture involving the base of the 5th metacarpal. There is no acute bony abnormality noted otherwise. Dictated by: Dictated on workstation # [id number]
== END 2020-05-08 02:57 | disposition home or self-care (01) ==
LOC: EDUNIT# 01:42 → ER 01:44
DX: S01.21XA Laceration without foreign body of nose, initial encounter (principal); S69.92XA Unspecified injury of left wrist, hand and finger(s), initial encounter; F41.9 Anxiety disorder, unspecified; I10 Essential (primary) hypertension; G89.29 Other chronic pain; M54.9 Dorsalgia, unspecified; Z23 Encounter for immunization; Z79.891 Long term (current) use of opiate analgesic; W18.39XA Other fall on same level, initial encounter; W22.8XXA Striking against or struck by other objects, initial encounter
CPT/HCPCS: 29125; 73130; 90715